=== PATIENT | female | born 1955 | race Caucasian/White ===

== ENCOUNTER 2020-11-25 08:00 | Day surgery (SDC) | payer OTHER ==
[~2020-11-25 08:00] MED LIST: ASPIRIN81 MG PO; COZAAR50 MG PO; FLUOXETINE HCL40 MG PO; GARCINIA CAMBO1 EACH PO; HYZAAR 50-12.51 EACH PO; MELOXICAM15 MG PO; NORCO 5-325 TA1 EACH PO; PERCOCET 5-3251 EACH PO; PROTONIX 40MG T40 MG PO; PROZAC40 MG PO; SYNTHROID125 MCG PO; TRAZODONE 50MG50 MG PO; VITAMIN D310 MC1 PO; XARELTO10 MG PO
[2020-11-25 09:47] LABS: BILIRUBIN NEGATIVE (NEGATIVE); BLOOD TRACE-INTACT Ery/uL (NEGATIVE); COLOR YELLOW (YELLOW); GLUCOSE (U) NORMAL (NORMAL); LEUKOCYTES 1+ Leu/uL (NEGATIVE); NITRITE POSITIVE (NEGATIVE); PROTEIN NEGATIVE (NEGATIVE); UROBILINOGEN 0.2 mg/dL (0.2-1.0)
[2020-11-25 09:49] LABS: HCT 45.3 % (37.0-47.0); HGB 14.2 g/dl (12.5-16.0); MCH 29.2 pg (25.0-31.0); MCHC 31.3 g/dL (32.0-36.0); MCV 93.2 fL (78.0-100.0); MPV 9.5 fL (6.0-9.5); RBC 4.86 M/uL (4.20-5.40); RDW 13.7 % (11.5-14.0)
[2020-11-25 10:09] LABS: ALBUMIN 3.7 g/dL (3.4-5.0); BILIRUBIN - TOTAL 0.4 mg/dL (0.2-1.0); BUN/CREAT RATIO (CALC) 27.5 RATIO; CREATININE 0.8 mg/dL (0.51-0.95); GLOBULIN (CALCULATION) 3.7 g/dL; POTASSIUM 4.4 mmol/L (3.5-5.1); TOTAL PROTEIN 7.4 g/dL (6.4-8.2)
[2020-11-25 10:23] LABS: CLARITY HAZY (CLEAR); INR 1.03 (0.9-1.2); PROTHROMBIN TIME 12.8 SECONDS (11.4-13.6); PTT 33.3 SECONDS (22.2-34.7)
[2020-11-25] MEDS ORDERED: PERCOCET 5-3251 EACH PO (10:30)
--- NOTE | 2020-11-25 12:55 | NUR ---
SURGERY WAS CANCELLED DUE TO CURRENT UTI, ZINACEF 1.5 GRAM IV INFUSED, Gino SORENSON RN AND DR FERGUSON REVIEWED ANTIBIOTIC AND UA NEEDS WITH PATIENT- VERBALIZED UNDERSTANDING, IV REMOVED AND PT D'C ED HOME IN CARE OF FRIEND WITH LEFT ARM IN SLING
[2020-11-26] MEDS ORDERED: LEVAQUIN500 MG PO (14:59)
== END 2020-11-25 12:00 | disposition home or self-care (01) ==
LOC: FAS 08:00
PROVIDERS: Legal Medicine
DX: S42.212A Unspecified displaced fracture of surgical neck of left humerus, initial encounter for closed fracture (principal); N39.0 Urinary tract infection, site not specified; K21.9 Gastro-esophageal reflux disease without esophagitis; I10 Essential (primary) hypertension; Z53.09 Procedure and treatment not carried out because of other contraindication; Z87.891 Personal history of nicotine dependence; Z79.82 Long term (current) use of aspirin; Z79.899 Other long term (current) drug therapy; Z20.822 Contact with and (suspected) exposure to COVID-19; W19.XXXA Unspecified fall, initial encounter; Y92.512 Supermarket, store or market as the place of occurrence of the external cause
CPT/HCPCS: 36415; 71045; 73030; 80053; 81003; 85610; 85730; 86850; 86900; 86901; 87076; 87088; 87186; 93005; J0171; J0697; J1885; J2270; J2795; J7120; U0002

== ENCOUNTER 2020-12-02 10:15 | Inpatient (IN) | payer OTHER ==
[~2020-12-02 10:15] MED LIST changes: +LEVAQUIN500 MG PO
[2020-12-03 05:50] LABS: BASOPHIL 0.4 % (0-2); EOSINOPHIL 0.2 % (0-7); HCT 38.4 % (37.0-47.0); HGB 12.1 g/dl (12.5-16.0); MCH 29.4 pg (25.0-31.0); MCHC 31.5 g/dL (32.0-36.0); MCV 93.4 fL (78.0-100.0); MONOCYTE 8.5 % (0-12); MPV 9.5 fL (6.0-9.5); NEUTROPHIL 75.5 % (41-80); NRBC 0; PLT 269 K/uL (150-400); RBC 4.11 M/uL (4.20-5.40); WBC 12.2 K/uL (4.0-10.5)
[2020-12-03 06:20] LABS: BUN/CREAT RATIO (CALC) 28.6 RATIO; CREATININE 0.77 mg/dL (0.51-0.95)
[2020-12-03] MEDS ORDERED: FEOSOL325 MG PO (11:55)
[2020-12-03] MEDS ORDERED: ASPIRIN325 MG PO (11:55)
--- NOTE | 2020-12-04 09:29 | NUR ---
PT. TO D/C HOME. SHE WILL NOT BEGIN PHYSICAL THERAPY UNTIL AFTER HER FOLLOW UP APPT. WITH DR. ZAIDI.
== END 2020-12-03 15:05 | disposition home or self-care (01) | DRG 483 ==
LOC: FSDC 10:15 → FMS 13:43
PROVIDERS: ADMIT Legal Medicine
PROC: 0RRK00Z Replacement of Left Shoulder Joint with Reverse Ball and Socket Synthetic Substitute, Open Approach (ICD-10-PCS; principal; 2020-12-02 11:30)
DX: S42.202A Unspecified fracture of upper end of left humerus, initial encounter for closed fracture (principal); Z20.822 Contact with and (suspected) exposure to COVID-19; Z96.652 Presence of left artificial knee joint; I10 Essential (primary) hypertension; K57.90 Diverticulosis of intestine, part unspecified, without perforation or abscess without bleeding; E03.9 Hypothyroidism, unspecified; K21.9 Gastro-esophageal reflux disease without esophagitis; W19.XXXA Unspecified fall, initial encounter; Z98.51 Tubal ligation status; Z90.49 Acquired absence of other specified parts of digestive tract; Z98.890 Other specified postprocedural states; Z87.440 Personal history of urinary (tract) infections; Z79.82 Long term (current) use of aspirin; Z79.890 Hormone replacement therapy; Z79.899 Other long term (current) drug therapy; Z87.891 Personal history of nicotine dependence
CPT/HCPCS: 36415; 80048; 85025; 86850; 86900; 86901; 94010; 94762; 97116; 97161; 97166; 97530-GP; 97535; C1713; C1776; J0171; J0360; J0697; J1170; J1885; J2250; J2270; J2704; J2795; J3010; J3490; J7120; U0002